=== PATIENT | male | born 1950 | race Caucasian/White ===

== ENCOUNTER → 2016-07-12 | Outpatient (CLI) | payer MEDICARE, OTHER ==
[~2016-07-12] VITALS: Ht 175.3 cm; Wt 113.4 kg
[~2016-07-12] MED LIST: ALLOPURINOL300 MG PO; ASPIRIN81 MG PO; CORDARONE 200M200 MG PO; CRESTOR40 MG PO; DIOVAN320 MG PO; ELIQUIS5 MG PO; FENOFIBRATE145 MG PO; HUMALOG100 UNIT/1 SQ; NEURONTIN600 MG PO; OMEPRAZOLE40 MG PO; PLAVIX 75 MG TA75 MG PO; SYNTHROID25 MCG PO; TOUJEO SC
[2016-07-12 09:01] LABS: HEMOGLOBIN 10.2 gm/dl (14.0-17.5); RED BLOOD COUNT 3.79 M/UL (4.20-5.50); WHITE BLOOD COUNT 6.3 K/UL (4.5-11.0)
== END | disposition home or self-care (01) ==
LOC: CATH 07:57
PROVIDERS: Internal Medicine
DX: I70.235 Atherosclerosis of native arteries of right leg with ulceration of other part of foot (principal); L97.519 Non-pressure chronic ulcer of other part of right foot with unspecified severity; I70.202 Unspecified atherosclerosis of native arteries of extremities, left leg; I70.92 Chronic total occlusion of artery of the extremities; E11.42 Type 2 diabetes mellitus with diabetic polyneuropathy; I50.9 Heart failure, unspecified; E78.5 Hyperlipidemia, unspecified; Z95.1 Presence of aortocoronary bypass graft; Z79.899 Other long term (current) drug therapy; Z77.22 Contact with and (suspected) exposure to environmental tobacco smoke (acute) (chronic); Z88.0 Allergy status to penicillin; Z79.82 Long term (current) use of aspirin; Z79.02 Long term (current) use of antithrombotics/antiplatelets; Z79.4 Long term (current) use of insulin; D64.9 Anemia, unspecified; F41.9 Anxiety disorder, unspecified; M19.90 Unspecified osteoarthritis, unspecified site; F32.9 Major depressive disorder, single episode, unspecified; K21.9 Gastro-esophageal reflux disease without esophagitis; M10.9 Gout, unspecified; E78.00 Pure hypercholesterolemia, unspecified; E03.9 Hypothyroidism, unspecified; G43.909 Migraine, unspecified, not intractable, without status migrainosus; N42.9 Disorder of prostate, unspecified; M06.9 Rheumatoid arthritis, unspecified; G47.30 Sleep apnea, unspecified; R94.39 Abnormal result of other cardiovascular function study; I25.10 Atherosclerotic heart disease of native coronary artery without angina pectoris
CPT/HCPCS: 36415; 75630; 80048; 82962; 85025; 85347; 85610; 85730; C1725; C1769; C1887; J1644; J2250; J3010; J7030; Q9965